=== PATIENT | female | born 1975 | race African-American/Black ===

== ENCOUNTER 2024-07-09 10:21 | Day surgery (SDC) | payer OTHER ==
[2024-07-02 10:53] VITALS: BMI 28.7
[2024-07-09 10:38] VITALS: RESP 18
[2024-07-09 12:02] VITALS: TEMP 97
[2024-07-09 12:33] VITALS: BP 117/64; PULSE 62
== END 2024-07-09 12:50 | disposition home or self-care (01) ==
LOC: FASU-ENDO 10:21
PROVIDERS: ATTEND Internal Medicine Gastroenterology
PROC: 0DJD8ZZ Inspection of Lower Intestinal Tract, Via Natural or Artificial Opening Endoscopic (ICD-10-PCS; principal; 2024-07-09 11:50)
DX: Z12.11 Encounter for screening for malignant neoplasm of colon (principal)
CPT/HCPCS: 81025